=== PATIENT | male | born 1945 | race Caucasian/White ===

== ENCOUNTER → 2017-05-06 | Outpatient (CLI) | payer MEDICARE, MEDICAID ==
--- NOTE | 2017-05-07 11:04 | RADIOLOGY REPORT PS360 ---
CT SOFT TISSUE NECK W/CONTRAST INDICATION: Palpable central anterior neck mass PALPABLE MASS NECK ORDERING PHYSICIAN: Neyda GATICA PATIENT AGE: 71 years COMPARISON: None TECHNIQUE: Axial images are obtained with contrast. Sagittal and coronal reformatted images are reviewed as well. A second set of images were performed with a BB placed at the neck mass. FINDINGS: No adenopathy. Unremarkable appearing nasopharynx, pharynx, epiglottis, and glottic region. The salivary glands have an unremarkable appearance. There are only a few scattered small lymph nodes in the neck. A BB is placed along the lower neck anteriorly slightly towards the left near the sternoclavicular region. There is some asymmetry in the subcutaneous fat at this area consistent with a small lipoma. Also, the head of the left clavicle weighted slightly more superior than the right clavicle and also somewhat more medial than the right clavicle and may be contributing to a pseudolesion. The sternocleidomastoid muscle is somewhat more prominent in this area as well possibly related to the asymmetry. No suspicious mass is evident in this area. IMPRESSION: 1. No suspicious soft tissue mass is evident. 2. Palpable abnormality may be related to a small lipoma as well asymmetric positioning of the head of the left clavicle and mild prominence of the sternoclavicular muscle. IMPRESSION:
--- NOTE | 2017-05-07 11:08 | RADIOLOGY REPORT PS360 ---
MRI-BRAIN W/O HISTORY: Seizure disorder, loss of balance, dizziness SEIZURE DISORDER, LOSS OF BALANCE ORDERING PHYSICIAN: Neyda GATICA PATIENT AGE: 71 years COMPARISON: None TECHNIQUE: Standard multiplanar multiecho sequences are performed without contrast. FINDINGS: No midline shift, mass effect, intracranial hemorrhage, hydrocephalus, or acute infarction is evident. There is mild generalized brain volume loss. No abnormal white matter signal intensity. No restricted diffusion. The cerebellopontine angles, cerebellum, and brainstem have an unremarkable appearance. Unremarkable pituitary and optic chiasm. No mastoid effusion or sinus air-fluid level. The hippocampal gyri have an unremarkable appearance and the temporal horns are symmetric IMPRESSION: 1. Essentially negative MRI of the brain without contrast 2. Mild cerebral atrophy
== END ==
LOC: RAD 14:22
DX: R22.1 Localized swelling, mass and lump, neck (principal); R26.89 Other abnormalities of gait and mobility; G40.909 Epilepsy, unspecified, not intractable, without status epilepticus
CPT/HCPCS: Q9967

== ENCOUNTER → 2017-06-17 | Outpatient (CLI) | payer MEDICARE, MEDICAID ==
[~2017-06-17] MED LIST: CEFPODOXIME PR200 M1 PO; PYRIDIUM200 M2 PO
--- NOTE | 2017-06-17 10:38 | RADIOLOGY REPORT PS360 ---
EXAM: Barium swallow/esophagram. INDICATION: ORDERING PHYSICIAN: Robin Arnold MD PATIENT AGE: 72 years COMPARISON: None TECHNIQUE: The esophagus was examined under fluoroscopy with images obtained. The patient was placed prone in the right anterior oblique position and was observed to swallow barium with Valsalva technique . FLUOROSCOPY TIME: 38 seconds FINDINGS: There was no evidence of aspiration. There was normal peristalsis. No filling defects or mucosal abnormalities. No masses or strictures. There was a small sliding hiatal hernia IMPRESSION: Small sliding hiatal hernia otherwise negative barium swallow.
== END ==
LOC: RAD 08:49
DX: R13.10 Dysphagia, unspecified (principal)

== ENCOUNTER 2017-06-22 09:39 | Emergency (ER) | payer MEDICARE, MEDICAID ==
[~2017-06-22] VITALS: Ht 175.3 cm; Wt 91.6 kg
--- NOTE | 2017-06-22 10:07 | Urgent Treatment Center Report ---
See Addendum History of Present Issue Date/Time Seen by Provider 06/22/17 0950 Visit Reason Pt arrived:Walked Presenting Problem:PT PRESENTS WITH COMPLAINTS OF BURNING WHEN VOIDING AND INCONTINENCE AT TIMES; STATES A PREVIOUS HISTORY OF BPH; IS AFEBRILE; NO BM IN 4 DAYS TOOK M.O.M THIS MORNING Location if Accident: Onset of symptoms date/time:06/19/17/ or onset unknown for:MEDICAL HX UNKNOWN Have you (or family members/close friends) recently traveled outside the [facility]? N If Yes, where/when: Have you had exposure to infectious disease within the past month? TB? Other? Specify: c/o dysuria, urinary frequency, hesitancy and urinary incontinence. Started 3-4 days ago. Dysuria worse. Pt frustrated because can't urinate when he wants to then when not paying attention, having accidents. Urine dark and cloudy. Hasn't taken or tried anything for symptoms. Denies fevers, nausea, chills. Hx of chronic back pain unchanged. During triage, mentioned no BM x 4 days. Reports hx of intermittent constipation. Always resolved w/ milk of mag. Took that just before leaving house. States he is not here for constipation and does not want treatment for constipation as milk of mag "always works". Contributes constipation to diet and not being as active as typical. Home meds keppra, celexa, protonix, lisinopril/hctz Source patient, family Exam Limitations no limitations ALLERGIES Coded Allergies: No Known Allergies (06/22/17) History Medical History General Hypertension? Yes Hyperlipidemia? Yes COPD? Yes Asthma? Yes BPH? Yes Arthritis? Yes Cancer? Yes More? No Immunization HX DT/Tetanus > 10 Years Ago Surgical Hx Previous Surgery?Y ESOPHAGEAL STRICTURE Social History Smoking Hx Smoker: Current Every Day Smoker Tobacco: Yes Type Cigarettes Packs/day 2 1/2 - 3 Packs Are you/the child exposed to second-hand smoke: Yes Alcohol Alcohol: No Review of Systems All Other Systems Reviewed and Negative Constitutional see HPI, denies malaise Gastrointestinal see HPI, denies abdominal pain, denies nausea, denies vomiting Genitourinary see HPI. denies: discharge, scrotal/testicular pain. Musculoskeletal see HPI Skin denies lesions Psychiatric/Neurological denies other (dizziness) Physical Exam Vital Signs Vital Signs Date Time Temp Pulse Resp B/P Pulse O2 O2 Flow FiO2 Ox Delivery Rate 06/22 1026 98.1 89 18 114/74 98 06/22 0957 98.1 89 18 114 98 General Appearance no apparent distress, seated in w/c, unkept appearance, overwhelming tobacco odor, unclear if patient or two family members Respiratory Status No: respiratory distress. Cardiovascular no peripheral edema Gastrointestinal normal bowel sounds, non tender, soft, protuberant, mild suprapubic discomfort, no bladder distention Back no CVA tenderness Neurologic alert, oriented x 3 Mental status normal mood/affect Skin normal color, warm/dry Medical Decision Making LABS/Meds/Orders Pt receiving controlled substance in ED? No Results/Orders Laboratory Tests 06/22/17 0948: Urine Color YELLOW, Urine Appearance Clear, Urine pH 7.0, Ur Specific [place] 1.025, Urine Protein 100, Urine Ketones NEGATIVE, Urine Blood 2+ H, Urine Nitrate NEGATIVE, Urine Bilirubin NEGATIVE, Urine Urobilinogen 0.2, Ur Leukocyte Esterase 3+ H, Urine Glucose NEGATIVE Orders Procedure Date/time Status CULTURE, URINE 06/[address] [facility] URINE DIPSTICK 06/22 0948 Complete Departure Departure Time of Disposition 1015 Disposition DC Home or Self Care(routine) Clinical Impression Primary Impression: UTI (urinary tract infection) Qualifiers: Urinary tract infection type: site unspecified Hematuria presence: with hematuria Qualified Code: N39.0 - Urinary tract infection, site not specified Secondary Impressions: Constipation Qualifiers: Constipation type: unspecified constipation type Qualified Code: K59.00 - Constipation, unspecified Condition STABLE Referrals Neyda Christopher (Family) * Be SURE to follow up anytime for new or worsening symptoms, in 48 hours for urine culture results AND in 10-14 days to repeat UA and ensure infection resolved and blood no longer present. Patient Instructions DI for Constipation, DI for Urinary Tract Infection (UTI) Additional Instructions * increase fluids, Water and NOT soda or tea to help with UTI and constipation * Start antibiotic immediately and be sure to take as ordered for the FULL length of time although you should start to see improvement over the next 48 hours. * pyridium as needed. Remember this will turn your urine ORANGE, this is normal but will stain whatever it gets on * You should not need the pyridium longer than 48 hours. If so, follow up with primary care to review urine culture and ensure antibiotic is adequate * Be sure to let your PCP (or whoever you follow up with) know we sent urine culture so they can request records and ensure you are on the appropriate antibiotic if you are not getting better or getting worse!!! *I understand you take milk of mag "here and there" for constipation and it typically always works so if it doesn't you be sure to seek treatment. You might want to discuss a daily stool softner with your primary care doctor. Increase fiber and water in diet. Discharge Counseling Counseled pt/family regarding diagnosis, test results, medications/RX, home care, follow up needs Prescriptions Current Visit Scripts Cefpodoxime Proxetil 200 MG PO BID #20 TAB Phenazopyridine HCl (Pyridium) 200 MG PO TIDP PRN dysuria #6 TAB will cause orange urine at 9586
[2017-06-22 10:13] LABS: URINE BILIRUBIN - DIPSTICK NEGATIVE (NEG); URINE BLOOD 2+ (NEG)
[2017-06-22] MEDS ORDERED: CEFPODOXIME PR200 M1 PO (10:21)
[2017-06-22] MEDS ORDERED: PYRIDIUM200 M2 PO (10:22)
[2017-06-22 10:26] VITALS: BP 114/74
== END 2017-06-22 10:29 | disposition home or self-care (01) ==
LOC: UTC 09:39
PROVIDERS: Nurse Practitioner Family
DX: N39.0 Urinary tract infection, site not specified (principal); K59.00 Constipation, unspecified; I10 Essential (primary) hypertension; J44.9 Chronic obstructive pulmonary disease, unspecified; J45.909 Unspecified asthma, uncomplicated; F17.210 Nicotine dependence, cigarettes, uncomplicated

== ENCOUNTER 2017-08-24 11:20 | Emergency (ER) | payer MEDICARE, MEDICAID ==
[~2017-08-24] VITALS: Ht 175.3 cm; Wt 94.3 kg
[2017-08-24] MEDS ORDERED: DETROL LA4 MG PO (11:35)
[2017-08-24] MEDS ORDERED: PANTOPRAZOLE SO40 MG PO (11:36)
[2017-08-24] MEDS ORDERED: HYDROCHLOROTHIA1 TA1 PO (11:37)
[2017-08-24] MEDS ORDERED: CELEXA 20MG TAB20 MG PO (11:38)
[2017-08-24] MEDS ORDERED: KEPPRA500 MG PO (11:39)
[2017-08-24] MEDS ORDERED: INCRUSE EL62.5 MCG/A IH (11:40)
--- NOTE | 2017-08-24 11:43 | Emergency Room Report ---
History of Present Illness Time Seen by [id number] Presenting Problem in Triage Pt arrived: Presenting Problem: Onset of symptoms date/time:/ or onset unknown for: Treatment Prior to Arrival: [employer]IC[employer] Provided by: Sepsis Risk Assessment: Temp: B/P: MAP: Pulse: Resp: Recent fever? Clinical Suspician of Infection? Mental Status: Sepsis Risk: Have you (or family members/close friends) recently traveled outside the [place]? If Yes, where/when: Have you had exposure to infectious disease within the past month? TB? Other? Specify: Source patient, RN notes reviewed Exam Limitations no limitations Comment Trouble breathing for the past 3-4 days. SOA, coughing up yellow phlegm and some soreness in chest. He has a history of COPD and uses inhalers and neb at home but still smokes about 3 ppd. No fever that he is aware of Cardiac Chest Pain Chest pain indicative of cardiac No ALLERGIES Coded Allergies: No Known Allergies (06/22/17) Home Medications Reported Medications Tolterodine Tartrate (Detrol La) 4 MG PO QHS Pantoprazole Sodium (Pantoprazole 40MG) 40 MG PO DAILY LISINOPRIL/HYDROCHLOROTHIAZIDE (Lisinopril-Hctz 20-12.5 MG Tab) 1 TAB PO DAILY CITALOPRAM HYDROBROMIDE (Citalopram HBr) 20 MG PO DAILY Levetiracetam (Keppra) 1,250 MG PO BID UMECLIDINIUM BROMIDE (Incruse Ellipta) 62.5 MCG IH DAILY History Medical History General Hypertension? Yes Hyperlipidemia? Yes COPD? Yes Asthma? Yes BPH? Yes Arthritis? Yes Cancer? Yes More? No Immunization Hx DT/Tetanus > 10 Years Ago Surgical Hx Previous Surgery?Y ESOPHAGEAL STRICTURE Social History Smoking Hx Packs/day 2 1/2 - 3 Packs Alcohol Alcohol: No Review of Systems All Other Systems Reviewed and Negative Respiratory see HPI Cardiovascular see HPI Physical Exam Vital Signs Vital Signs Date Time Temp Pulse Resp B/P Pulse O2 O2 Flow FiO2 Ox Delivery Rate 08/24 1240 86 22 118/68 92 2 08/24 1127 98.4 88 22 129/82 93 General Appearance normal appearance, WD/WN, no apparent distress Respiratory Status No: respiratory distress. Lung Sounds bilateral: rhonchi. Cardiovascular normal exam, regular rate/rhythm Neurologic alert, executive marketing assistant II-XII nml as tested, normal exam Medical Decision Making LABS/Meds/Orders Pt receiving controlled substance in ED? No Results/Orders Laboratory Tests 08/24/17 1335: ABG pH 7.39, ABG pCO2 (Temp Corrct 40.4, ABG pO2 (Temp Correct 68.7 L, ABG HCO3 24.1, ABG Total CO2 25.4, ABG O2 Sat (Calculated) 93.8, ABG Base Excess -0.8, Joe Test ACCEPTABLE, Blood Gas Comments LEFT RADIAL 08/24/17 120: Lactic Acid 0.7 08/24/17 120: Sodium 139, Potassium 3.9, Chloride 102, Carbon Dioxide 30, BUN 13, Creatinine 1.2, Estimated Creat Clear 76, Estimated GFR (MDRD) 60, Glucose 83, Calcium 8.9, Total Bilirubin 0.5, AST 13 L, ALT 22, Alkaline Phosphatase 89, Total Protein 8.0, Albumin 3.9, Globulin 4.1 H, Albumin/Globulin Ratio 1.0 L, WBC 8.3, RBC 4.75, Hgb 15.1, Hct 45.7, MCV 96.2, RDW 13.7, Plt Count 208, MPV 8.3, Gran % 70.5, Gran # 5.8, Lymphocytes % 19.9, Monocytes % 7.5, Eosinophils % 1.8, Basophils % 0.3, Lymphocytes # 1.6, Monocytes # 0.6, Eosinophils # 0.2, Basophils # 0.0, PUBS MCHC 33.1, MCH 31.8 H Current Medication Orders Sig/Saida Start time Last Medication Dose Route Stop Time Status Admin Levofloxacin/Dextrose 100 ML ONCE ONE 08/24 1445 CKDr IV 08/24 1544 Methylprednisolone 125 MG ONCE ONE 08/245 DC 08/24 Sodium Succinate IV 08/24 1216 1211 Albuterol/Ipratropium 0 .STK-MED ONE 08/24 1214 DC INH Sodium Chloride 1,000 ML .STK-MED ONE 08/242 DC IV Methylprednisolone 0 .STK-MED ONE 08/241 DC Sodium Succinate .ROUTE Albuterol/Ipratropium 3 ML ONCE ONE 08/24 1200 DC 08/24 INH 08/24 1201 1222 Sodium Chloride 10 ML PRN PRN 08/24 1200 AC IV 08/25 1153 Sodium Chloride 1,000 ML .Q8H 08/24 1200 AC 08/24 IV 08/24 2353 1211 Sodium Chloride 10 ML PRN PRN 08/24 1200 AC IV 08/25 1153 Orders Procedure Date/time Status RT REQUEST DUONEB 08/24 1154 Active CHEST(2 VIEWS-NOT PORTABLE) 08/24 1154 Active IV SALINE LOCK 08/24 1154 Active CULTURE, BLOOD 08/24 1154 Active LACTIC ACID 08/24 1154 Complete CBC WITH AUTO DIFF 08/24 1154 Complete CHEM 12 PROFILE 08/24 1154 Complete 12 LEAD EKG-BESSON (INITIAL) 08/24 1142 Active ELECTROCARDIOGRAM REQUEST 08/24 1142 Active XRAY/CT/US XRAY/CT/US XRAY chest XR interpretation by reviewed by me Xray Results LLL infiltrate Departure Departure Time of Disposition 143 Disposition DC Home or Self Care(routine) Clinical Impression Primary Impression: LLL pneumonia Qualifiers: Pneumonia type: due to unspecified organism Qualified Code: J18.1 - Lobar pneumonia, unspecified organism Condition STABLE Referrals Neyda Christopher (Family): 4 Days-Call Office Patient Instructions Chronic Obstructive Pulmonary Disease, DI for Atypical Pneumonia, DI for Chronic Obstructive Pulmonary Disease, Pneumonia-Adult Additional Instructions Use medicines , nebs and inhalers as prescribed. Encouraged to stop smoking Discharge Counseling Counseled pt/family regarding diagnosis, test results, medications/RX, home care, follow up needs Prescriptions Current Visit Scripts Levofloxacin (Levaquin 500MG) 500 MG PO DAILY #7 TAB Prednisone (Prednisone 5MG) 5 MG PO DAILY #39 TAB 6 tabs QD X 3D 4 tabs QD X 3D 2 tabs QD X 3D 1 tab QD X 3D ED Critical Care Critical Care No If Critical Care minutes are documented, the time involved in the performance of seperately reportable procedures was not counted toward critical care time documented. I directly delivered medical care to this critically ill and/or injured patient. Timely evaluation and treatment was necessary to address the significant organ system(s) dysfunction present in this patient. at 1441
--- OUTSIDE RECORDS SUMMARY | 2017-08-24 11:47 | External Medical Summary Rpt | CCD ---
Author Author [employer] Organization [employer] Address Unknown Phone Unavailable Purpose Continuity of Care Document - through 2016
--- OUTSIDE RECORDS SUMMARY | 2017-08-24 11:47 | External Medical Summary Rpt | CCD ---
Author Author , JESS MERCADO Address Unknown Phone [email or web address] Purpose Continuity of Care Document - 04-30-2017 through 2016 Problems Code Diagnosis DOS Provider Status G40.909 EPILEPSY, UNSP, NOT INTRACTABLE , WITHOUT STATUS EPILEPTICUS I10 ESSENTIAL (PRIMARY) HYPERTENSIO N Results Labs Lab Lab Date Result Refere Interp Status Commen Order Detail nces retati t Range on Urinalysis macro (dipstick) panel in Urine (06-22-2017 09:48) Appeara 06-22-2 Clear CLEAR complet nce of 017 ed Urine 09:48 Bilirub 06-22-2 NEGATIV NEG complet in 017 E ed [Presen 09:48 ce] in Urine by Test strip Erythro 2+ NEG Abnorma complet cytes 017 l ed [Presen 09:48 ce] in Urine Color 06-22-2 YELLOW YELLOW complet of 017 ed Urine 09:48 Ketones 24-2 NEGATIV NEG complet 017 E ed [Presen 09:48 ce] in Urine by Automat ed test strip Leukocy 24-2 3+ NEG Abnorma complet te 017 l ed esteras 09:48 e [Presen ce] in Urine by Automat ed test strip Nitrite 06-22-2 NEGATIV NEG complet 017 E ed [Presen 09:48 ce] in Urine by Test strip Urobili 24-2 0.2 NEG complet nogen 017 ed [Presen 09:48 ce] in Urine by Test strip
--- OUTSIDE RECORDS SUMMARY | 2017-08-24 11:47 | External Medical Summary Rpt | CCD ---
Demographics Preferred Language Macanese Marital Status Unknown Baptism Affiliation Unknown Race Unknown Ethnic Group Unknown Author Author , JESS MERCADO Address Unknown Phone Immunization No patient found.
--- OUTSIDE RECORDS SUMMARY | 2017-08-24 11:47 | External Medical Summary Rpt | CCD ---
Demographics Preferred Language Greek Marital Status Unknown Adventist Affiliation Unknown Race Unknown Ethnic Group Unknown Author Author , JESS MERCADO Address Unknown Phone Immunization No patient found.
--- OUTSIDE RECORDS SUMMARY | 2017-08-24 11:47 | External Medical Summary Rpt | CCD ---
Author Author , JESS MERCADO Address Unknown Phone [email or web address] Purpose Continuity of Care Document - 04-30-2017 [...]
--- OUTSIDE RECORDS SUMMARY | 2017-08-24 11:48 | External Medical Summary Rpt ---
Author Author [employer], [employer] Organization [employer] Address Unknown Phone Unavailable Results Urinalysis macro (dipstick) panel in Urine Observa Value Referen Units Interpr Notes Date tion ce etation Range Appeara Clear CLEAR No No No Sep 24 nce of informa informa informa 2017 Urine tion in tion in tion in 9:48 AM source source source data data data Bilirub NEGATIV NEG No No No Sep 24 in E informa informa informa 2017 [Presen tion in tion in tion in 9:48 AM ce] in source source source Urine data data data by Test strip Erythro 2+ NEG No Abnorma No Sep 24 cytes informa l informa 2017 [Presen tion in tion in 9:48 AM ce] in source source Urine data data Color YELLOW YELLOW No No No Sep 24 of informa informa informa 2017 Urine tion in tion in tion in 9:48 AM source source source data data data Glucose NEG No No No Sep 24 [Mass/vol informati informati informati 2017 9:48 ume] in on in on in on in AM Urine by source source source Test data data data strip Ketones NEGATIV NEG mg/dL No No Sep 24 E informa informa 2017 [Presen tion in tion in 9:48 AM ce] in source source Urine data data by Automat ed test strip pH of 5.0 - 8.5 No Normal No Sep 24 Urine informati informati 2017 9:48 on in on in AM source source data data Protein NEG mg/dL No No Sep 24 [Mass/vol informati informati 2017 9:48 ume] in on in on in AM Urine by source source Automated data data test strip Specific 1.005 - No Normal No Sep 24 gravity 1.030 informati informati 2017 9:48 of Urine on in on in AM source source data data Leukocy 3+ NEG No Abnorma No Sep 24 te informa l informa 2017 esteras tion in tion in 9:48 AM e source source [Presen data data ce] in Urine by Automat ed test strip Nitrite NEGATIV NEG No No No Jun 22 E informa informa informa 2016 [Presen tion in tion in tion in 9:48 AM ce] in source source source Urine data data data by Test strip Urobili 0.2 NEG E.U./dL No No Jun 22 nogen informa informa 2016 [Presen tion in tion in 9:48 AM ce] in source source Urine data data by Test strip Levetiracetam [Mass/volume] in Serum or Plasma Observa Value Referen Units Interpr Notes Date tion ce etation Range Levetirac 10.0 - ug/mL No Performed Apr 30 etam 40.0 informati at: BN 2017 9:00 [Mass/vol on in - [facility] AM ume] in source Serum or data [facility] Plasma [id number] [place], [place] [id number] Hot Knife Foxing Cutter: Ede Donald MD, Phone: [phone] 4 Comprehensive metabolic 2000 panel in Serum or Plasma Observa Value Referen Units Interpr Notes Date tion ce etation Range Albumin/G 1.1 - 1.8 No Low No Apr 30 lobulin informati informati 2016 9:00 [Mass on in on in AM ratio] in source source Serum or data data Plasma Albumin 3.4 - 5.0 gm/dL Normal No Apr 30 [Mass/vol informati 2016 9:00 ume] in on in AM Serum or source Plasma data Alkaline 46 - 116 U/L Normal No Apr 30 phosphata informati 2016 9:00 se on in AM [Enzymati source c data activity/ volume] in Serum or Plasma Bilirubin 0.2 - 1.0 mg/dL Normal No Apr 30 .total informati 2016 9:00 [Mass/vol on in AM ume] in source Serum or data Plasma Urea 7 - 18 mg/dL High No Apr 30 nitrogen informati 2016 9:00 [Mass/vol on in AM ume] in source Serum or data Plasma Calcium 8.5 - mg/dL Normal No Apr 30 [Mass/vol 10.1 informati 2017 9:00 ume] in on in AM Serum or source Plasma data Chloride 98 - 107 mmoL/L Normal No Apr 30 [Moles/vo informati 2016 9:00 lume] in on in AM Serum or source Plasma data Carbon 21.0 - mmoL/L Normal No Apr 30 dioxide, 32.0 informati 2016 9:00 total on in AM [Moles/vo source lume] in data Serum or Plasma Creatinin 0.70 - mg/dL Normal No Apr 30 e 1.30 informati 2016 9:00 [Mass/vol on in AM ume] in source Serum or data Plasma Estimated >60 ML/MIN No REFERENCE Apr 30 informati RANGE: 2017 9:00 glomerula on in >60 AM r source ML/MIN/1. filtratio data 73 SQUARE n rate METERSIf (GF this patient is -A merican, then multiply theresult by 1.210. Globulin 1.3 - 3.2 gm/dL High No Apr 30 [Mass/vol informati 2016 9:00 ume] in on in AM Serum source data Glucose 74 - 106 mg/dL High No Apr 30 [Mass/vol informati 2016 9:00 ume] in on in AM Serum or source Plasma data Potassium 3.5 - 5.1 mmoL/L Normal No Apr 30 informati 2016 9:00 [Moles/vo on in AM lume] in source Serum or data Plasma Sodium 136 - 145 mmoL/L Normal No Apr 30 [Moles/vo informati 2016 9:00 lume] in on in AM Serum or source Plasma data Aspartate 15 - 37 U/L Low No Apr 30 informati 2016 9:00 aminotran on in AM sferase source [Enzymati data c activity/ volume] in Serum or Plasma Alanine 12 - 78 U/L Normal No Apr 30 aminotran informati 2016 9:00 sferase on in AM [Enzymati source c data activity/ volume] in Serum or Plasma Protein 6.4 - 8.2 gm/dL Normal No Apr 30 [Mass/vol informati 2016 9:00 ume] in on in AM Serum or source Plasma data Thyrotropin [Units/volume] in Serum or Plasma Observa Value Referen Units Interpr Notes Date tion ce etation Range Thyrotrop 0.358 - uIU/ml Normal No Apr 30 in 3.740 informati 2016 9:00 [Units/vo on in AM lume] in source Serum or data Plasma CBC W Auto Differential panel in Blood Observa Value Referen Units Interpr Notes Date tion ce etation Range Basophils 0 - 0.2 K/MM3 Normal No Apr 30 informati 2016 9:00 [#/volume on in AM ] in source Blood by data Automated count Basophils 0.1 - 2.0 % Normal No Apr 30 /100 informati 2016 9:00 leukocyte on in AM s in source Blood by data Automated count Eosinophi 0.0 - 0.4 K/mm3 Normal No Apr 30 ls informati 2016 9:00 [#/volume on in AM ] in source Blood by data Automated count Eosinophi 0.1 - % Normal No Apr 30 ls/100 12.0 informati 2016 9:00 leukocyte on in AM s in source Blood by data Automated count Granulocy 1.3 - 8.0 K/mm3 Normal No Apr 30 ned informati 2016 9:00 [#/volume on in AM ] in source Blood by data Automated count Granulocy 37.0 - % Normal No Apr 30 ned/100 80.0 informati 2016 9:00 leukocyte on in AM s in source Blood by data Automated count Hematocri 42.0 - % Normal No Apr 30 t [Volume 52.0 informati 2016 9:00 on in AM Fraction] source of Blood data Hemoglobi 14.1 - g/dL Normal No Apr 30 n 18.0 informati 2016 9:00 [Mass/vol on in AM ume] in source Blood data Lymphocyt 0.7 - 4.5 K/mm3 Normal No Apr 30 es informati 2016 9:00 [#/volume on in AM ] in source Unspecifi data ed specimen by Automated count Lymphocyt 10 - 50 % Normal No Apr 30 es informati 2016 9:00 [#/volume on in AM ] in source Unspecifi data ed specimen by Automated count Erythrocy 27 - 31.2 pg High No Apr 30 te mean informati 2016 9:00 corpuscul on in AM ar source hemoglobi data n [Entitic mass] Erythrocy 31.8 - g/dl Normal No Apr 30 te mean 35.4 informati 2016 9:00 corpuscul on in AM ar source hemoglobi data n concentra tion [Mass/vol ume] by Automated count Erythrocy 82.2 - fl Normal No Apr 30 te mean 97.8 informati 2016 9:00 corpuscul on in AM ar volume source [Entitic data volume] by Automated count Monocytes 0.1 - 1.0 K/mm3 Normal No Apr 30 informati 2016 9:00 [#/volume on in AM ] in source Blood by data Automated count Monocytes 1.7 - 9.3 % Normal No Apr 2 /100 informati 2016 9:00 leukocyte on in AM s in source Blood by data Automated count Platelet 7.4 - fl Normal Apr 30 mean 10.4 ati 2016 9:00 volume on in AM [Entitic source volume] data in Blood by Automated count Platelets 142 - 424 K/mm3 Normal Apr 30 informati 2016 9:00 [#/volume on in AM ] in source Blood data Erythrocy 4.6 - 6.2 M/mm3 Normal No Apr 30 ned informati 2016 9:00 [#/volume on in AM ] in source Amniotic data fluid Erythrocy 11.5 - % Normal Apr 30 te 17.5 informati 2016 9:00 distribut on in AM ion width source [Entitic data volume] by Automated count Leukocyte 4.8 - K/MM3 Normal No Apr 30 s 10.8 informati 2016 9:00 [#/volume on in AM ] in source Blood data
--- OUTSIDE RECORDS SUMMARY | 2017-08-24 11:48 | External Medical Summary Rpt ---
[...] AM ume] in source Serum or data [facility] Plasma [id number] [place], [place] [id number] Floor Grinder: Ede Donald MD, Phone: [phone] 4 Comprehensive metabolic 2000 panel in Serum [...]
[2017-08-24 12:17] LABS: HEMOGLOBIN 15.1 g/dL (14.1-18.0); LYMPH # 1.6 K/mm3 (0.7-4.5); LYMPH % 19.9 % (10-50)
[2017-08-24 13:39] LABS: ARTERIAL PO2 68.7 MMHG (80-100); ARTERIAL TCO2 25.4 MMOL/L (23-27)
[2017-08-24 13:40] LABS: ALLEN'S TEST ACCEPTABLE; ARTERIAL ABE -0.8 MMOL/L (-2.4-+2.3); OXYGEN 2 L NASAL CANNULA
[2017-08-24] MEDS ORDERED: PREDNISONE 5MG.5 MG PO (14:40)
[2017-08-24] MEDS ORDERED: LEVAQUIN500 MG PO (14:40)
--- NOTE | 2017-08-24 14:55 | RADIOLOGY REPORT PS360 ---
CHEST(2 VIEWS-NOT PORTABLE) Ordering Physician: Jesus Gonzales MD Patient Age: 72 years: Male HISTORY: COUGH2 weeks cough TECHNIQUE: PA and lateral chest COMPARISON : Previous PA and lateral chest film 04/29/2017. Period. No other chest studies FINDINGS Additional prominence of central markings as well as interstitial markings centrally and towards the bases bilateral compared to prior study bilaterally . Suspected reflect bronchitis and possibly mild interstitial infiltrate/pneumonitis central and towards the bases , superimposed upon some chronic changes.. Correlation required. Most suspect of a subtle superimposed infiltrate at the left infrahilar region, medial left base. Would be suspect viral pneumonitis but indeterminate etiology.. Also note interval increase Prominence of pulmonary veins suggesting vascular engorgement with possible mild vascular congestion & borderline/minimal CHF also contributing to this interstitial prominence and overall appearance.. Might Consider checking BNP . Previous CXR study showed linear atelectasis and scarring at lung bases.. No pleural effusions. No pneumothorax. Ribs chest wall unremarkable. T-spine stable. IMPRESSION: Vascular engorgement. Slight Question mild vascular congestion. Increased prominence central markings with accentuated interstitial pattern & lung markings towards lung bases bilateral. Suspect bronchitis with perhaps subtle perihilar infiltrate. Suggestion subtle possible Interstitial pneumonitis towards lung bases superimposed upon chronic changes, most evident at left infrahilar area... Clinical correlation required.. Mild vascular congestion could also contribute to this interstitial prominence & overall picture.
[2017-08-24 16:13] VITALS: BP 118/76
== END 2017-08-24 16:17 | disposition home or self-care (01) ==
LOC: ER 11:20
PROVIDERS: General Practice
DX: J18.1 Lobar pneumonia, unspecified organism (principal); F17.210 Nicotine dependence, cigarettes, uncomplicated; I10 Essential (primary) hypertension; J44.9 Chronic obstructive pulmonary disease, unspecified; E78.5 Hyperlipidemia, unspecified
CPT/HCPCS: J1956